=== PATIENT | male | born 1955 | race American Indian/Alaskan Native ===

== ENCOUNTER 2019-07-29 20:01 | Inpatient (IN) | payer MEDICARE, OTHER ==
[2019-07-29] MEDS ORDERED: ASPIRIN 81 MG TAB CHEW PO ONE (20:17)
[2019-07-29] MEDS ORDERED: ASPIRIN 81 MG TAB CHEW ONE (20:19)
--- NOTE | 2019-07-29 20:25 | Emergency Department Report ---
ED Chest Pain HPI - General Chief Complaint: Chest Pain Stated Complaint: CHEST PAIN Time Seen by Provider: 07/29/19 20:17 Source: EMS Mode of arrival: Stretcher Limitations: No Limitations - History of Present Illness Initial Comments: Patient is 63 years old male with history of coronary artery disease, status post stent 10 years ago at [facility]. Patient presented to the ER complaining of substernal chest pain that radiates to his neck. Patient describes his pain as heaviness. Patient stated that pain started 3 days ago, on and off worse in the morning. Patient denied any shortness of breath, fever or chills. EKG showed STEMI. STEMI protocol was initiated. I discussed the patient with Dr. Rangel. Patient moved to cardiac cath. MD Complaint: chest pain -: days(s) (3) Onset: during rest Pain Location: substernal Pain Radiation: none Severity: moderate Severity scale (0 -10): 5 Quality: heaviness Worsens With: nothing - Related Data Allergies Allergy/AdvReac Type Severity Reaction Status Date / Time No Known Allergies Allergy Unverified 07/29/19 20:14 Heart Score - HEART Score History: Highly suspicious EKG: Significant ST-depression Age: 45-65 Risk factors: > 3 risk factors or hx of atherosclerotic disease Troponin: < normal limit HEART Score: 7 - Critical Actions Critical Actions: >7 pts:50-65% risk of adverse cardiac event. Early invasive measures ED Review of Systems ROS: Stated complaint: CHEST PAIN Other details as noted in HPI Comment: All other systems reviewed and negative Constitutional: denies: chills, fever Respiratory: denies: cough Cardiovascular: chest pain. denies: palpitations, dyspnea on exertion, orthopnea Gastrointestinal: denies: abdominal pain, nausea, vomiting, diarrhea, constipation, hematemesis, melena, hematochezia Musculoskeletal: denies: back pain Neurological: denies: headache, weakness, numbness, paresthesias, confusion, abnormal gait ED Past Medical Hx - Past Medical History Hx Heart Attack/AMI: Yes Hx Diabetes: Yes Additional medical history: Cateracts - Surgical History Additional Surgical History: Cataracts urgery 07/13 - Social History Smoking Status: Unknown if ever smoked ED Physical Exam - General Limitations: No Limitations General appearance: alert, in no apparent distress - Head Head exam: Present: atraumatic, normocephalic, normal inspection - Eye Eye exam: Present: normal appearance - ENT ENT exam: Present: normal exam, normal orophraynx, mucous membranes moist - Neck Neck exam: Present: normal inspection, full ROM. Absent: tenderness, meningismus, lymphadenopathy, thyromegaly - Respiratory Respiratory exam: Present: normal lung sounds bilaterally - Cardiovascular Cardiovascular Exam: Present: bradycardia - GI/Abdominal GI/Abdominal exam: Present: soft, normal bowel sounds. Absent: distended, tenderness, guarding, rebound, rigid, organomegaly, mass, bruit, pulsatile mass, hernia - Extremities Exam Extremities exam: Present: normal inspection, full ROM, normal capillary refill. Absent: tenderness, pedal edema, joint swelling, calf tenderness - Back Exam Back exam: Present: normal inspection, full ROM. Absent: CVA tenderness (R), CVA tenderness (L) - Neurological Exam Neurological exam: Present: alert, oriented X3, CN II-XII intact, normal gait, reflexes normal - Psychiatric Psychiatric exam: Present: normal mood - Skin Skin exam: Present: warm, intact, normal color ED Course Vital Signs 07/29/19 07/29/19 07/29/19 20:00 20:08 20:16 Temperature 98.3 F Pulse Rate 82 57 L 61 Respiratory 13 12 10 L Rate Blood Pressure 149/88 149/88 Blood Pressure [Left] O2 Sat by Pulse 97 100 Oximetry 07/29/19 07/29/19 07/29/19 20:17 20:30 20:46 Temperature Pulse Rate 54 L 59 L 73 Respiratory 11 L 15 Rate Blood Pressure 132/72 132/85 Blood Pressure [Left] O2 Sat by Pulse 100 99 Oximetry 07/29/19 07/29/19 07/29/19 20:57 21:01 22:39 Temperature Pulse Rate 54 L 47 L Respiratory 12 16 Rate Blood Pressure 127/73 Blood Pressure 147/104 [Left] O2 Sat by Pulse 99 99 100 Oximetry ED Medical Decision Making - Lab Data Result diagrams: 07/29/19 20:26 07/29/19 20:26 - EKG Data -: EKG Interpreted by [place] EKG shows normal: sinus rhythm Rate: bradycardia - EKG Data Interpretation: acute NV - Medical Decision Making Patient is 63 years old male with history of coronary artery disease, status post stent 10 years ago at [facility]. Patient presented to the ER complaining of substernal chest pain that radiates to his neck. Patient describes his pain as heaviness. Patient stated that pain started 3 days ago, on and off worse in the morning. Patient denied any shortness of breath, fever or chills. EKG showed STEMI. STEMI protocol was initiated. Patient received aspirin, hep corie and Plavix. I discussed the patient with Dr. Rangel. Patient moved to cardiac cath. Critical Care Time: Yes Critical care time in (mins) excluding proc time.: 30 Critical care attestation.: If time is entered above; I have spent that time in minutes in the direct care of this critically ill patient, excluding procedure time. ED Disposition Clinical Impression: STEMI (ST elevation myocardial infarction) Disposition: [id number] OP ADMIT IP TO THIS HOSP Is pt being admited?: Yes Condition: Stable
[2019-07-29] MEDS ORDERED: CLOPIDOGREL 300 MG TAB PO ONE (20:30)
[2019-07-29] MEDS ORDERED: HEPARIN 10,000 UNITS/10 ML VIAL IV ONE (20:31)
[2019-07-29] MEDS: HEPARIN/ 0.45% NACL DRIP 25,000 UNIT/500 ML BAG IV SCH ×2 (20:38→21:27)
--- NOTE | 2019-07-29 20:42 | XRay Report ---
CHEST 1 VIEW 07/29/2019 8:18 PM INDICATION / CLINICAL INFORMATION: Chest Pain. COMPARISON: None available. FINDINGS: SUPPORT DEVICES: None. HEART / MEDIASTINUM: No significant abnormality. LUNGS / PLEURA: No significant pulmonary or pleural abnormality. No pneumothorax. ADDITIONAL FINDINGS: No significant additional findings. IMPRESSION: 1. No acute findings. Signer Name: Amado Rothman MD Signed: 07/29/2019 8:37 PM Workstation Name: [id number]
[2019-07-29 20:44] LABS: Basophils # (Auto) 0.1 K/mm3 (0.0-0.1); Basophils % (Auto) 0.4 % (0.0-1.8); Eosinophils # (Auto) 0.1 K/mm3 (0.0-0.4); Hematocrit 44.9 % (35.5-45.6); Hemoglobin 15.3 gm/dl (11.8-15.2); Lymphocytes # (Auto) 3.5 K/mm3 (1.2-5.4); Lymphocytes % (Auto) 24.2 % (13.4-35.0); Mean Corpuscular HGB Conc 34 % (32-34); Mean Corpuscular Volume 89 fl (84-94); Monocytes # (Auto) 0.9 K/mm3 (0.0-0.8); Monocytes % (Auto) 6.3 % (0.0-7.3); Platelet Count 173 K/mm3 (140-440); Red Blood Count 5.08 M/mm3 (3.65-5.03); Red Cell Distribution Width 12.9 % (13.2-15.2)
[2019-07-29 20:57] LABS: INR 1.01 (0.87-1.13)
[2019-07-29 21:05] LABS: Partial Thromboplastin Time 30.1 Sec. (24.2-36.6)
[2019-07-29 21:07] LABS: Bilirubin,Urine NEG (Negative); Blood,Urine SM (Negative); Color,Urine Yellow (Yellow); Urobilinogen,Urine < 2.0 mg/dL (<2.0)
[2019-07-29 21:07] LABS: BUN/Creatinine Ratio 20; Blood Urea Nitrogen 20 mg/dL (9-20); Calcium 9.2 mg/dL (8.4-10.2); Hemolysis Index 14
[2019-07-29] MEDS ORDERED: HEPARIN 10,000 UNITS/10 ML VIAL ONE (21:11)
[2019-07-29] MEDS ORDERED: LIDOCAINE (2%) 20 MG/1 ML VIAL 20 ML MDV INFILTRATI ONE (21:11)
[2019-07-29] MEDS ORDERED: fentaNYL 100 MCG/2 ML INJ ONE (21:11)
[2019-07-29] MEDS ORDERED: MIDAZOLAM 2 MG/2 ML INJ ONE (21:11)
[2019-07-29] MEDS ORDERED: VERAPAMIL 5 MG/2 ML INJ ONE (21:11)
[2019-07-29] MEDS ORDERED: HEPARIN/NS 5000 UNIT/500ML 1,000 ML IR ONE (21:11)
[2019-07-29] MEDS ORDERED: NITROGLYCERIN SYRINGE 3 ML ONE (21:12)
[2019-07-29 21:50] LABS: Amphetamine Screen,Urine PRESUMPTIVE NEGATIVE; Benzodiazepines Screen,Urine PRESUMPTIVE NEGATIVE; Cocaine Screen,Urine PRESUMPTIVE NEGATIVE; Methadone Screen,Urine PRESUMPTIVE NEGATIVE; Opiate Screen,Urine PRESUMPTIVE NEGATIVE
[2019-07-29 21:52] LABS: Chol/HDL Ratio 4.47 %; HDL Cholesterol 38 mg/dL (40-59); LDL Cholesterol,Direct 114 mg/dL (50-130)
[2019-07-29] MEDS ORDERED: MORPHINE 2 MG/1 ML INJ IV PRN (22:14)
[2019-07-29] MEDS ORDERED: ONDANSETRON 4 MG/2 ML INJ IV PRN (22:14)
[2019-07-29] MEDS ORDERED: ACETAMINOPHEN 325 MG TAB PO PRN (22:14)
--- NOTE | 2019-07-29 22:17 | History and Physical Report ---
History of Present Illness Date of examination: 07/29/19 History of present illness: 63-year-old man with a history of coronary artery disease comes emergency room with complaints of chest pain that started 5 days ago. He stated that the pain is in the epigastric area which she describes as a dull pain, has been interm ittent usually for 10 minutes but today was constant, intensity 7/10, leading to the neck, cannot identify exacerbating factor. Admits to diaphoresis, no nausea vomiting shortness of breath or palpitation. In the emergency room code STEMI was activated, he was taken emergently to the color laboratory technician, a stent was placed in the RCA and he also has a temporary pacemaker Review Of Systems: Constitutional: no weight loss, fever, chills Ears, eyes, nose, mouth and throat: no nasal congestion, no nasal discharge, no sinus pressure, blurry vision, diplopia Neck: No neck pain or rigidity. Cardiovascular: No palpitations Respiratory: No shortness of breath, cough Gastrointestinal: No hematochezia, abdominal pain Genitourinary : no dysuria, frequency , hematuria Musculoskeletal: no muscle ache , joint pain Integumentary: no rash, no pruritis Neurological: no parathesias, focal weakness Endocrine: no cold or heat intolerance, no polyuria or polydipsia Hematologic/Lymphatic: no easy bruising, no easy bleeding, no gland swelling Allergic/Immunologic: no urticaria, no angioedema. PAST MEDICAL HISTORY:coronary artery disease PAST SURGICAL HISTORY:None FAMILY HISTORY:hypertension, diabetes SOCIAL HISTORY: Smoke 1/2 a pack a day, marijuana, alcohol Medications and Allergies Allergies Allergy/AdvReac Type Severity Reaction Status Date / Time No Known Allergies Allergy Unverified 07/29/19 20:14 Active Meds: Active Medications Acetaminophen (Tylenol) 650 mg PO Q4H PRN PRN Reason: Pain MILD(1-3)/Fever >100.5/HODGES Aspirin (Ecotrin) 325 mg PO QDAY CHRISTIN Atorvastatin Calcium (Lipitor) 80 mg PO QHS CHRISTIN Heparin Sodium/Sodium Chloride (Heparin/ 0.45% Nacl-25,000 Unit/500 Ml) 25,000 unit in 500 mls @ 20 mls/hr IV TITRATE CHRISTIN; Protocol Last Admin: 07/29/19 21:27 Dose: 15 units/kg/hr, 26.807 mls/hr Documented by: Morphine Sulfate (Morphine) 2 mg IV Q4H PRN PRN Reason: Pain, Moderate (4-6) Ondansetron HCl (Zofran) 4 mg IV Q8H PRN PRN Reason: Nausea And Vomiting Sodium Chloride (Sodium Chloride Flush Syringe 10 Ml) 10 ml IV BID CHRISTIN Sodium Chloride (Sodium Chloride Flush Syringe 10 Ml) 10 ml IV PRN PRN PRN Reason: LINE FLUSH Exam - Physical Exam Narrative exam: General Apperance: The patient sitting in bed no acute distress HEENT: Normocephalic, atraumatic. Pupils equally round and reactive to light, extraocular movement intact, and no sclericterus or JVD or thyromegaly or nodule. Neck supple, no carotid bruit, mucous membranes moist, no exudate or erythema Heart: S1-S2, regular is rhythm Lungs: Clear to auscultation bilaterally, breathing comfortable Abdomen: Positive bowel sounds, soft, nontender, nondistended, no organomegaly Extremities: No edema cyanosis clubbing Skin: no rash, nodule, warm and dry Neuro:CN 2 -12 intact, motor/sensory intact, speech is fluent - Constitutional Vitals: Temp Pulse Resp BP Pulse Ox 98.3 F 47 L 16 127/73 99 07/29/19 20:08 07/29/19 21:01 07/29/19 21:01 07/29/19 21:01 07/29/19 21:01 Results - Labs CBC & Chem 7: 07/29/19 20:26 07/29/19 20:26 Labs: Abnormal lab results 07/29/19 07/29/19 07/29/19 Range/Units 20:26 20:26 20:45 WBC 14.4 H (4.5-11.0) K/mm3 RBC 5.08 H (3.65-5.03) M/mm3 Hgb 15.3 H (11.8-15.2) gm/dl RDW 12.9 L (13.2-15.2) % Hickman # 0.9 H (0.0-0.8) K/mm3 Seg Neutrophils # 9.8 H (1.8-7.7) K/mm3 Sodium 135 L (137-145) mmol/L Chloride 97.4 L (98-107) mmol/L Carbon Dioxide 21 L (22-30) mmol/L Glucose 205 H (75-100) mg/dL Troponin T 0.063 H (0.00-0.029) ng/mL Triglycerides 185 H (2-149) mg/dL HDL Cholesterol 38 L (40-59) mg/dL Urine WBC (Auto) 169.0 H (0.0-6.0) /HPF - Imaging and Cardiology EKG: image reviewed Chest x-ray: report reviewed Assessment and Plan Assessment STMI Leukocytosis most likely stressed induced Plan Admit to medicine Patient was started on aspirin, statin by cardiology Consult critical care IV morphine, DVT prophylaxis
[2019-07-29 22:22] LABS: Cannabinoid Screen,Urine PRESUMPTIVE POSITIVE
--- NOTE | 2019-07-29 23:19 | Cardiac Catherization Report ---
CARDIAC CATHETERIZATION INDICATION: The patient is a pleasant 63-year-old -[place] gentleman who presents with 3 days of chest pain and inferior ST elevation. STEMI protocol was initiated. Risks, benefits, alternatives discussed prior to obtaining informed consent. PROCEDURE IN DETAIL: The patient was brought to the clinical laboratory manager in urgent fashion, prepped and draped in sterile fashion, 8 mL of 2% lidocaine used to anesthetize the right groin. A standard 7-Romansh sheath placed in the right femoral vein and 6-Romansh in the right femoral artery. Both via modified Seldinger technique. At this point, due to significant bradycardia with heart rates in the 30s, I placed a balloon tipped temporary venous pacemaker via the right femoral vein, a backup rate set at 50, pacemaker operating normally. Next, we turned our attention to left heart catheterization. Unable to find the left system and the left coronary cusp via JL4 catheter, we used a JR4 guide to cross the aortic valve. Left ventriculography performed in 30 RIVAS and 30 MALIAN projections via hand injections, catheter flushed. Manual pullback performed with continuous pressure monitoring. Catheter used to engage the right coronary. Incidentally, it was noted that the left main and the right coronary arise from the right coronary cusp. I believe they are essentially adjacent or perpendicular to each other the takeoffs. FINDINGS: Aortic pressure is 130/70, LV pressure is 130, LVP of 20 mmHg. Left ventriculography reveals inferoapical dyskinesis, estimated ejection fraction of 40-45%. No evidence of aortic stenosis, high normal LVEDP. The patient remained in sinus zander to sinus rhythm with PVCs throughout the procedure. ANATOMY: The left main without significant disease, long left main bifurcates into left anterior descending and left circumflex. LAD is a moderate sized vessel, courses AV groove, gives off no significant disease in the LAD or left circumflex. There is a small remnant, left circumflex also coming off of the right coronary cusp, small vessel, no significant disease. Right coronary is a large vessel, courses AV groove, distally bifurcates in the posterior and posterolateral branches. Stent in the mid right coronary is widely patent. Acute plaque rupture 99%, tandem 99% stenosis just distal to the stent, ROMAN 1-2 flow. At this point, we turned our attention to PCI. Heparin given. Abnormal ACT is confirmed. A [place] wire was used to cross the lesion without difficulty, predilated the lesions with 2.5 x 12 balloon. I placed a 2.75 x 34 [place] drug-eluting stent, 12 DOT for 30 seconds and postdilated at 13 DOT for 15 seconds, postdilated the overlap with the proximal stent at 14 DOT for 15 seconds. Excellent final angiographic result. Intravascular ultrasound was performed, multiple passes were made, which revealed well-opposed and well expanded stent. There is a 30-40% stenosis in the mid right coronary nonobstructive, no complications, no dissection. The patient is feeling much better. Rhythm is now normal. Clinically stable. We will keep the pacemaker in overnight, if he does not need it in the morning we will discontinue the right femoral arterial sheath once ACT is less than 170. He has already been loaded with Plavix and aspirin. He is clinically much improved. I directly supervised the administration of moderate sedation from 9:20 p.m. to 10:05 p.m. I also had a long discussion with the patient about smoking cessation and smoking techniques over 10 minutes spent on this. He smokes marijuana and tobacco. CONCLUSIONS: 1. Acute atherothrombotic subtotal occlusion .of the distal right coronary in the milieu of 3 days of crescendo chest pain, inferior ST elevation complicated by severe bradycardia. A successful IVUS-guided PCI of mid right coronary with placement of drug-eluting stent (Sushil 2.75 x 34) with excellent final angiographic and ultrasonographic results. 2. Successful placement of temporary venous pacemaker via the right femoral vein. 3. Incidentally, the left main arises from the right coronary cusp. No significant disease in the left system. 4. Left ventriculography reveals inferoapical dyskinesis, estimated ejection fraction 40-45% with high normal LVEDP. 5. No evidence of aortic stenosis. At this point, patient is clinically stable. Aspirin, statin therapy. Pull femoral arterial sheath once ACT less than 170. Consider pulling femoral venous sheath once in a.m. if patient no longer requires pacing. Aspirin, Plavix, statin therapy. Bed rest overnight. We will check an echocardiogram. I discussed the results of procedure at length with the patient and family. All questions and concerns were addressed. He is clinically stable and doing much better, will be admitted by the hospitalist to the ICU. We will follow along closely. JOB# [id number] SBM/NTS
--- NOTE | 2019-07-30 00:54 | Consultation ---
CARDIOLOGY CONSULTATOIN PRIMARY CARE PHYSICIAN: Dr. Tejeda. REASON FOR CONSULTATION: Advice and opinion regarding ST elevation and chest pain. HISTORY OF PRESENT ILLNESS: The patient is a very pleasant 63-year-old -[place] gentleman with a history of hypertension, diabetes, coronary artery disease, status post PCI, tobacco abuse, who presents here for ongoing chest pain, worsening over 3 days. He states that he had some chest pain, diaphoresis. EKG shows bradycardia, inferior ST elevation, reciprocal lateral changes initially had 10/10 chest pain. STEMI protocol was initiated. Positive diaphoresis. No syncope or presyncope. No palpitations, rashes, abdominal pain, bleeding diathesis. No fevers, chills, nausea or vomiting. No headache, blurred vision or stroke symptoms. PAST MEDICAL HISTORY: As aforementioned including hypertension, diabetes, tobacco abuse, marijuana use. He also has a family history of premature heart disease. 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 He is . REVIEW OF SYSTEMS: As per HPI. ALLERGIES: No known drug, food, or environmental allergies. LABORATORY DATA: Labs are pending. PHYSICAL EXAMINATION: VITAL SIGNS: Blood pressure was 140/80, is afebrile. Tele reveals sinus rhythm with unifocal PVCs. GENERAL: This is a middle-aged -[place] male in no apparent distress, oriented x 3. HEENT: Sclerae icteric. NECK: Supple. No JVD. CHEST: Clear to auscultation bilaterally. Good air movement. CARDIOVASCULAR: Regular rhythm, S1, S2. ABDOMEN: Soft, nontender, nondistended. Normoactive bowel sounds in all 4 quadrants. No mass or bruits. EXTREMITIES: No cyanosis, clubbing or edema. Good peripheral pulses. SKIN: Intact. No rashes. DATA: EKG is aforementioned. ASSESSMENT AND PLAN: In summary, the patient is a pleasant 63-year-old -[place] gentleman. 1. Acute inferior ST elevation myocardial infarction with 3 days of worsening chest pain late presentation. STEMI protocol initiated. Aspirin, Plavix, heparin given. Urgent cardiac catheterization. Further plans continued on cath results. Over 45 minutes were spent in the evaluation of the patient upon ER notification. Further plans will be continued on cath results. JOB# [id number] SBM/NTS
--- NOTE | 2019-07-30 04:54 | XRay Report ---
CHEST 1 VIEW 07/30/2019 3:17 AM INDICATION / CLINICAL INFORMATION: post pci. COMPARISON: Chest x-ray 07/29/2019 FINDINGS: SUPPORT DEVICES: None. HEART / MEDIASTINUM: No significant abnormality. LUNGS / PLEURA: No significant pulmonary or pleural abnormality. No pneumothorax. ADDITIONAL FINDINGS: No significant additional findings. IMPRESSION: 1. No acute findings. Signer Name: Amado Rothman MD Signed: 07/30/2019 4:50 AM Workstation Name: [id number]
[2019-07-30 05:36] LABS: Basophils % (Auto) 0.3 % (0.0-1.8); Eosinophils % (Auto) 0.4 % (0.0-4.3); Lymphocytes # (Auto) 2.6 K/mm3 (1.2-5.4); Lymphocytes % (Auto) 23.9 % (13.4-35.0); Mean Corpuscular HGB Conc 34 % (32-34); Mean Corpuscular Volume 89 fl (84-94); Monocytes # (Auto) 0.9 K/mm3 (0.0-0.8); Monocytes % (Auto) 8.3 % (0.0-7.3); Platelet Count 151 K/mm3 (140-440); Red Blood Count 4.97 M/mm3 (3.65-5.03); Red Cell Distribution Width 12.6 % (13.2-15.2)
[2019-07-30 05:59] LABS: Creatine Kinase MB 197.2 ng/mL (0.0-4.0)
[2019-07-30 06:01] LABS: BUN/Creatinine Ratio 20; Blood Urea Nitrogen 16 mg/dL (9-20); Calcium 8.5 mg/dL (8.4-10.2); Hemolysis Index 1
--- NOTE | 2019-07-30 08:23 | Event Note ---
Date: 07/30/19 no cp or sob nad vss sinus rhythm 55-65 chest clear cor rrr abd soft ext w/o edema imp: s/p stemi/pci/bradycardia stable cardiac status temp pacer removed continue current mgt
[2019-07-30] MEDS: ASPIRIN EC 325 MG TAB PO SCH (10:49)
[2019-07-30] MEDS: CLOPIDOGREL 75 MG TAB PO SCH (10:49)
--- NOTE | 2019-07-30 12:26 | Progress Note ---
Assessment and Plan - Patient Problems (1) STEMI (ST elevation myocardial infarction) Current Visit: Yes Status: Acute Qualifiers: Involved coronary artery: right coronary artery Qualified Code(s): I21.11 - ST elevation (STEMI) myocardial infarction involving right coronary artery Plan to address problem: S/p stent Cont Plavix and ASA On IV Heparin drip (2) UTI (urinary tract infection) Current Visit: Yes Status: Acute Qualifiers: Urinary tract infection type: acute cystitis Plan to address problem: Initiated on Rocephin pending cultures (3) BPH (benign prostatic hyperplasia) Current Visit: Yes Status: Chronic Qualifiers: Lower urinary tract symptom presence: symptoms present Plan to address problem: Cont Flomax (4) T2DM (type 2 diabetes mellitus) Current Visit: Yes Status: Chronic Qualifiers: Diabetes mellitus intermediate project manager insulin use: without intermediate project manager use Plan to address problem: Cont Metformin and coverage (5) Glaucoma Current Visit: Yes Status: Chronic Qualifiers: Glaucoma type: unspecified Plan to address problem: [place] Eye drops Latanoprost and Timolol (6) HLD (hyperlipidemia) Current Visit: Yes Status: Chronic Qualifiers: Hyperlipidemia type: mixed hyperlipidemia Qualified Code(s): E78.2 - Mixed hyperlipidemia Plan to address problem: Cont statins (7) DVT prophylaxis Current Visit: Yes Status: Acute Plan to address problem: Scd's and GI prophylaxis and Heparin drip Subjective Date of service: 07/30/19 Principal diagnosis: Acute [place] Interval history: 63-year-old man with a history of coronary artery disease comes emergency room with complaints of chest pain that started 5 days ago. He stated that the pain is in the epigastric area which he describes as a dull pain, has been intermittent usually for 10 minutes but today was constant, intensity 7/10, leading to the neck, cannot identify exacerbating factor. Admits to diaphoresis, no nausea vomiting shortness of breath or palpitation. In the emergency room code STEMI was activated, he was taken emergently to the [facility], a stent was placed in the RCA and he also has a temporary venous pacemaker. Interval history--Patient is chest pain free.Lying comfortably in bed.Family at bedside Objective - Constitutional Vitals: Vital Signs - 12hr 07/30/19 07/30/19 07/30/19 00:30 00:31 00:41 Temperature Pulse Rate 66 66 Pulse Rate [ From Monitor] Respiratory 16 20 Rate Blood Pressure 129/77 129/77 O2 Sat by Pulse 100 100 100 Oximetry 07/30/19 07/30/19 07/30/19 00:51 01:00 01:01 Temperature Pulse Rate 54 L 95 H Pulse Rate [ From Monitor] Respiratory 15 22 Rate Blood Pressure 125/77 125/77 O2 Sat by Pulse 100 100 100 Oximetry 07/30/19 07/30/19 07/30/19 01:11 01:21 01:31 Temperature Pulse Rate 68 59 L 61 Pulse Rate [ From Monitor] Respiratory 21 16 15 Rate Blood Pressure 125/77 128/85 128/85 O2 Sat by Pulse 100 100 100 Oximetry 07/30/19 07/30/19 07/30/19 01:41 01:51 02:00 Temperature Pulse Rate 62 100 H Pulse Rate [ From Monitor] Respiratory 16 16 Rate Blood Pressure 128/85 128/85 O2 Sat by Pulse 100 100 100 Oximetry 07/30/19 07/30/19 07/30/19 02:01 02:11 02:21 Temperature Pulse Rate 61 60 61 Pulse Rate [ From Monitor] Respiratory 20 23 19 Rate Blood Pressure 128/65 128/65 115/73 O2 Sat by Pulse 99 100 100 Oximetry 07/30/19 07/30/19 07/30/19 02:31 02:41 02:51 Temperature Pulse Rate 60 107 H 116 H Pulse Rate [ From Monitor] Respiratory 14 18 24 Rate Blood Pressure 115/73 117/73 116/69 O2 Sat by Pulse 100 99 99 Oximetry 07/30/19 07/30/19 07/30/19 03:01 03:11 03:21 Temperature Pulse Rate 60 56 L 80 Pulse Rate [ From Monitor] Respiratory 17 16 26 H Rate Blood Pressure 116/69 105/72 116/69 O2 Sat by Pulse 100 100 100 Oximetry 07/30/19 07/30/19 07/30/19 03:31 03:41 03:51 Temperature Pulse Rate 59 L 53 L 64 Pulse Rate [ From Monitor] Respiratory 19 23 18 Rate Blood Pressure 116/69 116/69 116/69 O2 Sat by Pulse 100 100 100 Oximetry 07/30/19 07/30/19 07/30/19 04:00 04:01 04:03 Temperature 98.2 F Pulse Rate 69 Pulse Rate [ 66 From Monitor] Respiratory 26 H Rate Blood Pressure 107/74 O2 Sat by Pulse 100 100 Oximetry 07/30/19 07/30/19 07/30/19 04:11 04:21 04:31 Temperature Pulse Rate 56 L 57 L 92 H Pulse Rate [ From Monitor] Respiratory 19 21 24 Rate Blood Pressure 107/74 107/74 107/74 O2 Sat by Pulse 100 100 100 Oximetry 07/30/19 07/30/19 07/30/19 04:41 04:51 05:01 Temperature Pulse Rate 101 H 60 55 L Pulse Rate [ From Monitor] Respiratory 21 17 21 Rate Blood Pressure 107/74 107/74 109/73 O2 Sat by Pulse 99 99 99 Oximetry 07/30/19 07/30/19 07/30/19 05:11 05:21 05:31 Temperature Pulse Rate 57 L 58 L 54 L Pulse Rate [ From Monitor] Respiratory 19 18 16 Rate Blood Pressure 109/73 109/73 109/73 O2 Sat by Pulse 99 100 100 Oximetry 07/30/19 07/30/19 07/30/19 05:41 05:51 06:01 Temperature Pulse Rate 54 L 58 L 53 L Pulse Rate [ From Monitor] Respiratory 15 19 16 Rate Blood Pressure 109/73 109/73 124/68 O2 Sat by Pulse 99 99 99 Oximetry 07/30/19 07/30/19 07/30/19 06:11 06:21 06:31 Temperature Pulse Rate 70 60 55 L Pulse Rate [ From Monitor] Respiratory 16 18 17 Rate Blood Pressure 124/68 124/68 124/68 O2 Sat by Pulse 100 100 100 Oximetry 07/30/19 07/30/19 07/30/19 06:41 06:51 07:00 Temperature Pulse Rate 56 L 66 Pulse Rate [ 74 From Monitor] Respiratory 18 19 Rate Blood Pressure 124/68 124/68 O2 Sat by Pulse 100 100 100 Oximetry 07/30/19 07/30/19 07/30/19 07:01 07:11 07:21 Temperature Pulse Rate 101 H 54 L 66 Pulse Rate [ From Monitor] Respiratory 17 19 16 Rate Blood Pressure 124/68 124/68 124/68 O2 Sat by Pulse 100 99 99 Oximetry 07/30/19 07/30/19 07/30/19 07:31 07:41 07:51 Temperature Pulse Rate 81 57 L 86 Pulse Rate [ From Monitor] Respiratory 14 12 13 Rate Blood Pressure 124/68 124/68 124/68 O2 Sat by Pulse 100 100 100 Oximetry 07/30/19 07/30/19 07/30/19 08:00 08:01 08:11 Temperature 98.5 F Pulse Rate 57 L 67 Pulse Rate [ From Monitor] Respiratory 17 15 Rate Blood Pressure 107/67 107/67 O2 Sat by Pulse 100 100 Oximetry 07/30/19 07/30/19 07/30/19 08:21 08:31 08:41 Temperature Pulse Rate 64 56 L 56 L Pulse Rate [ From Monitor] Respiratory 18 18 19 Rate Blood Pressure 107/67 107/67 107/67 O2 Sat by Pulse 100 100 99 Oximetry 07/30/19 07/30/19 07/30/19 08:51 09:01 09:11 Temperature Pulse Rate 80 60 54 L Pulse Rate [ From Monitor] Respiratory 17 19 15 Rate Blood Pressure 107/67 107/67 107/67 O2 Sat by Pulse 100 100 100 Oximetry 07/30/19 07/30/19 07/30/19 09:21 09:31 09:41 Temperature Pulse Rate 57 L 58 L 61 Pulse Rate [ From Monitor] Respiratory 17 17 16 Rate Blood Pressure 107/67 107/67 107/67 O2 Sat by Pulse 100 100 100 Oximetry 07/30/19 07/30/19 07/30/19 09:51 10:00 10:01 Temperature Pulse Rate 92 H 56 L 56 L Pulse Rate [ From Monitor] Respiratory 20 21 Rate Blood Pressure 107/67 121/69 O2 Sat by Pulse 99 98 98 Oximetry 07/30/19 07/30/19 07/30/19 10:11 10:21 10:30 Temperature Pulse Rate 61 58 L 59 L Pulse Rate [ From Monitor] Respiratory 21 18 15 Rate Blood Pressure 121/69 121/69 121/69 O2 Sat by Pulse 98 100 99 Oximetry 07/30/19 07/30/19 07/30/19 10:41 10:51 11:01 Temperature Pulse Rate 57 L 68 51 L Pulse Rate [ From Monitor] Respiratory 20 13 20 Rate Blood Pressure 121/69 121/69 110/74 O2 Sat by Pulse 100 100 100 Oximetry 07/30/19 07/30/19 07/30/19 11:11 11:21 11:31 Temperature Pulse Rate 54 L 59 L 52 L Pulse Rate [ From Monitor] Respiratory 16 15 15 Rate Blood Pressure 110/74 110/74 110/74 O2 Sat by Pulse 99 100 100 Oximetry General appearance: Present: no acute distress, well-nourished - EENT Eyes: PERRL, EOM intact ENT: hearing intact, clear oral mucosa Ears: bilateral: normal - Neck Neck: supple, normal ROM - Respiratory Respiratory effort: normal Respiratory: bilateral: CTA - Breasts Breasts: normal - Cardiovascular Heart rate: 78 Rhythm: regular Heart Sounds: Present: S1 & S2. Absent: gallop, rub Extremities: no ischemia, pulses intact, No edema, normal color, Full ROM - Gastrointestinal General gastrointestinal: Present: soft, non-tender, non-distended, normal bowel sounds Rectal Exam: deferred - Genitourinary Male genitourinary: normal - Integumentary Integumentary: clear, warm, dry - Musculoskeletal Musculoskeletal: 1, strength equal bilaterally - Neurologic Neurologic: moves all extremities - Psychiatric Psychiatric: memory intact, appropriate mood/affect, intact judgment & insight - Labs CBC & Chem 7: 07/30/19 04:55 07/30/19 04:55 Labs: Abnormal lab results 07/29/19 07/29/19 07/29/19 Range/Units 20:26 20:26 20:45 WBC 14.4 H (4.5-11.0) K/mm3 RBC 5.08 H (3.65-5.03) M/mm3 Hgb 15.3 H (11.8-15.2) gm/dl RDW 12.9 L (13.2-15.2) % [place] % (Auto) (0.0-7.3) % [place] # 0.9 H (0.0-0.8) K/mm3 Seg Neutrophils # 9.8 H (1.8-7.7) K/mm3 Activated Clotting Time (74-137) Sodium 135 L (137-145) mmol/L Chloride 97.4 L (98-107) mmol/L Carbon Dioxide 21 L (22-30) mmol/L Glucose 205 H (75-100) mg/dL Total Creatine Kinase (55-170) units/L CK-MB (CK-2) (0.0-4.0) ng/mL CK-MB (CK-2) Rel Index (0-4) Troponin T 0.063 H (0.00-0.029) ng/mL Triglycerides 185 H (2-149) mg/dL HDL Cholesterol 38 L (40-59) mg/dL Urine WBC (Auto) 169.0 H (0.0-6.0) /HPF 07/29/19 07/30/19 07/30/19 Range/Units 23:20 00:43 01:03 WBC (4.5-11.0) K/mm3 RBC (3.65-5.03) M/mm3 Hgb (11.8-15.2) gm/dl RDW (13.2-15.2) % [place] % (Auto) (0.0-7.3) % [place] # (0.0-0.8) K/mm3 Seg Neutrophils # (1.8-7.7) K/mm3 Activated Clotting Time > 1000 H > 1000 H (74-137) Sodium (137-145) mmol/L Chloride (98-107) mmol/L Carbon Dioxide (22-30) mmol/L Glucose (75-100) mg/dL Total Creatine Kinase (55-170) units/L CK-MB (CK-2) (0.0-4.0) ng/mL CK-MB (CK-2) Rel Index (0-4) Troponin T 1.970 H* D (0.00-0.029) ng/mL Triglycerides (2-149) mg/dL HDL Cholesterol (40-59) mg/dL Urine WBC (Auto) (0.0-6.0) /HPF 07/30/19 07/30/19 Range/Units 04:55 04:55 WBC (4.5-11.0) K/mm3 RBC (3.65-5.03) M/mm3 Hgb (11.8-15.2) gm/dl RDW 12.6 L (13.2-15.2) % [place] % (Auto) 8.3 H (0.0-7.3) % [place] # 0.9 H (0.0-0.8) K/mm3 Seg Neutrophils # (1.8-7.7) K/mm3 Activated Clotting Time (74-137) Sodium 136 L (137-145) mmol/L Chloride (98-107) mmol/L Carbon Dioxide 20 L (22-30) mmol/L Glucose 160 H (75-100) mg/dL Total Creatine Kinase 2790 H (55-170) units/L CK-MB (CK-2) 197.2 H (0.0-4.0) ng/mL CK-MB (CK-2) Rel Index 7.0 H (0-4) Troponin T 7.240 H* D (0.00-0.029) ng/mL Triglycerides (2-149) mg/dL HDL Cholesterol (40-59) mg/dL Urine WBC (Auto) (0.0-6.0) /HPF - Imaging and cardiology EKG: report reviewed
--- NOTE | 2019-07-30 13:35 | Consultation ---
History of Present Illness Consult date: 07/30/19 Requesting physician: EJ ANDERSON Reason for consult: other (STEMI) History of present illness: PULMONARY/CCM CONSULT NOTE (Full dictation # [id number]) Please see dictated notes for full details Medications and Allergies Allergies Allergy/AdvReac Type Severity Reaction Status Date / Time No Known Allergies Allergy Unverified 07/29/19 20:14 Home Medications Medication Instructions Recorded Confirmed Last Taken Type AtorvaSTATin [Lipitor] 20 mg PO QHS 07/30/19 07/30/19 07/28/19 21:00 History Baclofen 5 mg PO TID PRN MDD 15 mg 07/30/19 07/30/19 2 Days Ago History ~07/28/19 1 tab Latanoprost 0.005% [Xalatan 0.005%] 1 drop OP QPM 07/30/19 07/30/19 2 Days Ago History ~07/28/19 Metformin HCl [metFORMIN] 1,000 mg PO BID MDD diabetes 07/30/19 07/30/19 07/29/19 09:00 History Moxifloxacin 0.5% [Vigamox] 1 drops OP QAM 07/30/19 07/30/19 1 Day Ago History ~07/29/19 Tamsulosin [Flomax] 0.4 mg PO QDAY 07/30/19 07/30/19 07/29/19 09:00 History Timolol 0.5% [Timoptic] 1 drops OP BID 07/30/19 07/30/19 07/29/19 09:00 History 1 drop both eyes prednisoLONE ACETATE 1% [Pred 1 drops OP QDAY 07/30/19 07/30/19 07/29/19 09:00 History Forte 1%] Active Meds: Active Medications Acetaminophen (Tylenol) 650 mg PO Q4H PRN PRN Reason: Pain MILD(1-3)/Fever >100.5/HODGES Aspirin (Ecotrin) 325 mg PO QDAY [facility] Last Admin: 07/30/19 10:49 Dose: 325 mg Documented by: Atorvastatin Calcium (Lipitor) 80 mg PO QHS CHRISTIN Clopidogrel Bisulfate (Plavix) 75 mg PO QDAY [facility] Last Admin: 07/30/19 10:49 Dose: 75 mg Documented by: Heparin Sodium/Sodium Chloride (Heparin/ 0.45% Nacl-25,000 Unit/500 Ml) 25,000 unit in 500 mls @ 20 mls/hr IV TITRATE CHRISTIN; Protocol Last Admin: 07/29/19 21:27 Dose: 15 units/kg/hr, 26.807 mls/hr Documented by: Ceftriaxone Sodium (Rocephin/Ns 2 Gm/100 Ml) 2 gm in 100 mls @ 200 mls/hr IV Q24HR CHRISTIN; Protocol Insulin Human Lispro (Humalog) 0 unit SUB-Q ACHS CHRISTIN; Protocol Morphine Sulfate (Morphine) 2 mg IV Q4H PRN PRN Reason: Pain, Moderate (4-6) Ondansetron HCl (Zofran) 4 mg IV Q8H PRN PRN Reason: Nausea And Vomiting Sodium Chloride (Sodium Chloride Flush Syringe 10 Ml) 10 ml IV BID [facility] Last Admin: 07/30/19 10:52 Dose: 10 ml Documented by: Sodium Chloride (Sodium Chloride Flush Syringe 10 Ml) 10 ml IV PRN PRN PRN Reason: LINE FLUSH Physical Examination Vital signs: Vital Signs Pulse Resp 82 13 07/29/19 20:00 07/29/19 20:00 Results - Laboratory Findings CBC and BMP: 07/30/19 04:55 07/30/19 04:55 PT/INR, D-dimer PT 13.0 Sec. (12.2-14.9) 07/29/19 20:33 INR 1.01 (0.87-1.13) 07/29/19 20:33 Abnormal lab findings: Abnormal Labs 07/29/19 07/29/19 07/29/19 20:26 20:26 20:45 WBC 14.4 H RBC 5.08 H Hgb 15.3 H RDW 12.9 L [place] % (Auto) [place] # 0.9 H Seg Neutrophils # 9.8 H Activated Clotting Time Sodium 135 L Chloride 97.4 L Carbon Dioxide 21 L Glucose 205 H Total Creatine Kinase CK-MB (CK-2) CK-MB (CK-2) Rel Index Troponin T 0.063 H Triglycerides 185 H HDL Cholesterol 38 L Urine WBC (Auto) 169.0 H 07/29/19 07/30/19 07/30/19 23:20 00:43 01:03 WBC RBC Hgb RDW [place] % (Auto) [place] # Seg Neutrophils # Activated Clotting Time > 1000 H > 1000 H Sodium Chloride Carbon Dioxide Glucose Total Creatine Kinase CK-MB (CK-2) CK-MB (CK-2) Rel Index Troponin T 1.970 H* D Triglycerides HDL Cholesterol Urine WBC (Auto) 07/30/19 07/30/19 04:55 04:55 WBC RBC Hgb RDW 12.6 L [place] % (Auto) 8.3 H [place] # 0.9 H Seg Neutrophils # Activated Clotting Time Sodium 136 L Chloride Carbon Dioxide 20 L Glucose 160 H Total Creatine Kinase 2790 H CK-MB (CK-2) 197.2 H CK-MB (CK-2) Rel Index 7.0 H Troponin T 7.240 H* D Triglycerides HDL Cholesterol Urine WBC (Auto)
[2019-07-30] MEDS ORDERED: HEPARIN/ 0.45% NACL - 25,000 UNITS/500 ML DRIP ONE (14:03)
[2019-07-30] MEDS ORDERED: HEPARIN 10,000 UNITS/10 ML VIAL ONE (14:03)
[2019-07-30] MEDS ORDERED: SODIUM CHLORIDE 0.9% 1000 ML IV SOLN ONE (14:03)
[2019-07-30] MEDS: cefTRIAXone/NS 2 GM/100 ML 2 GM/100 ML BAG IV SCH (15:29)
[2019-07-30] MEDS: FAMOTIDINE 20 MG TAB PO SCH ×2 (15:44→21:58)
[2019-07-30] MEDS: INSULIN LISPRO 100 UNIT/ML SUB-Q SCH ×2 (16:47→22:25)
--- NOTE | 2019-07-31 05:05 | Consultation ---
PULMONARY CRITICAL CARE CONSULTATION CONSULTING PHYSICIAN: Dr. Li. REASON FOR CONSULTATION: ST elevation IL. CHIEF COMPLAINT AND HISTORY OF PRESENT ILLNESS: As follows, the patient is a 63-year-old black male with past medical history significant for diagnosis of coronary artery disease, came into the Emergency Room, complaining of chest pain that he states he first noticed about 5 days ago, he woke up in the morning with a slight pain, did not think too much about it. It continued to bother him daily. However, yesterday about 5:00 p.m. or so, he went into the kitchen to try and get some food and was hit with a really bad pain, broke out into sweat, could not really figure out what to do. He had dyspnea on exertion, shortness of breath. He denied any vomiting. In the Emergency Room, he was brought in and found to have an ST elevation. EKG was taken emergently to the [facility], received a stent to the RCA as well as a temporary pacemaker placement. He was brought into the Intensive Care Unit thereafter where I stopped by to see him. When I stopped by to see him, he was resting peacefully in bed, feeling better. He stated that he has received a stent in the past, but did not know, he should be on any medications, he admits to about a 20+ pack year tobacco smoking history. This really is as much of the history of presentation as I have. PAST MEDICAL HISTORY: Coronary artery disease. PAST SURGICAL HISTORY: Denies. MEDICATIONS: He was on at the time I stopped by to see him, according to the medication administration record, included the following: Tylenol 650 mg p.o. q. 4 hours p.r.n. mild pain or fevers, aspirin 325 mg p.o. daily, Lipitor 80 mg p.o. at bedtime, Rocephin 2 g IV daily, Plavix 75 mg p.o. daily, IV heparin drip was going per ACS protocol, morphine sulfate 2 mg IV q. 4 hours p.r.n. moderate pain, Zofran 4 mg IV q. 8 hours p.r.n. nausea and vomiting. ALLERGIES: No known drug allergies. DIET: Well-built gentleman, denies acute weight loss or gain in the preceding few weeks to months. FAMILY AND SOCIAL HISTORY: Lives in the community, 20+ pack year tobacco smoking history, smokes marijuana. Denies IV illicit drug use or abuse otherwise, denies alcohol use or abuse. There is a family history of hypertension and diabetes. REVIEW OF SYSTEMS: No loss of consciousness. He had a near syncope. No new onset focal weakness. No gross hematochezia or melena. No gross hematuria or dysuria. No hematemesis. No hemoptysis. No new onset seizures. He denies any history of easy bruising. He denies heat or cold intolerance. He denies polydipsia or polyuria. Denied any new rash on his body. Denies any periods of unexplained sadness and/or elation as may be consistent with psychiatric type disorders. Complete 13-system review of systems was obtained. Pertinent positives and/or negatives as in body of history above, otherwise, they are noncontributory. PHYSICAL EXAMINATION: VITAL SIGNS: At presentation, he was afebrile, temperature 98.3 degrees Fahrenheit, pulse of 82, respiratory rate of 13, blood pressure was 149/98, O2 sats were 97%, inspired oxygen concentration was not recorded at the time. When I stopped by to see him, O2 sats were 99% that was on room air. GENERAL: He is an elderly looking male, normocephalic, atraumatic, talking to me in full sentences without significant respiratory distress. HEAD, EYES, EARS, NOSE, AND THROAT: Anicteric, no conjunctival erythema. Oropharynx is moist. Mallampati #2 oropharynx. No gross jugular venous distention, no thyromegaly. NECK: Grossly, there were no palpable lymph nodes in the supraclavicular or submandibular lymph node chains. LUNGS: Auscultation of both lung celis were unremarkable. Lungs were clear bilaterally with good bilateral air movement. HEART: Heart sounds 1 and 2 were heard. They were regular in rate and rhythm, at the time of my evaluation without overt rubs or murmurs. ABDOMEN: Soft, flat. Bowel sounds are positive, nontender, no palpable hepatosplenomegaly. EXTREMITIES: Without overt digital clubbing, no cyanosis, no pedal edema. Pedal pulses were 2+ bilaterally. NEUROLOGIC: Pupils were equal, round, about 3 mm, reactive to light. Extraocular muscle movements were intact. He moved all 4 extremities spontaneously. No fasciculations, no spasticity. SKIN: Normal turgor without overt cellulitis or rash. PSYCHIATRIC: Mood was normal. Affect was appropriate. LABORATORY DATA: From my review are as follows: Admission white cell count 14,400, hemoglobin 15.3, hematocrit 44.9, platelet count 173. INR was 1.01. Serum sodium was 135, potassium was 4.6, chloride was 97, bicarbonate was 21, BUN was 20, creatinine 1.0, and glucose 205. Troponin was 1.97. LDL cholesterol 114, HDL 38. Urinalysis showed large amount of leukocyte esterase as well as 169 white cells per high power field. 1+ yeast. Urine drug screen presumptive positive for THC. No microbiology studies. Chest x-ray has been reviewed, essentially clear lung celis. No acute cardiopulmonary process that I can see. No overt cardiomegaly. A 2D echocardiogram has been done. The official report is pending. Cardiac catheterization was done. The impression, acute subtotal occlusion of the distal RCA, successful IV ultrasound-guided PCI of mid right coronary artery with placement of a drug-eluting stent. Also, successful placement of a temporary venous pacemaker via the right femoral vein. Left ventriculography revealed inferoapical dyskinesis with an estimated ejection fraction of 40-45. No significant elevated end diastolic pressures. ASSESSMENT: 1. ST elevation myocardial infarction. 2. Acute respiratory distress. 3. Tobacco use disorder. 4. Leukocytosis. 5. Mild metabolic acidosis. 6. Likely urinary tract infection. PLAN: I will continue antiplatelet therapy and other targeted therapies for the coronary artery disease including antilipid therapy with statins. I have strongly counseled against tobacco smoking. He agrees to that and plans to stop it right away. I have also advised him that THC smoking probably also has similar deleterious effects, probably in another study, there is a tobacco. I have advised him that if I were in this condition, I will stop all smoking completely. I have advised better compliance with his medications and to take them as ordered as well as to follow up regularly. I will defer further ACS intervention to the directional survey drafter. I will put him on GI prophylaxis, especially with him on the IV heparin and other antiplatelet therapies. DVT prophylaxis once he is off the IV heparin. Flu and pneumonia vaccination will be addressed per protocol. Thank you very much for the consult. We will follow along and make further recommendations as picture progresses/becomes clearer. JOB# [id number] MIN/ADELSO
[2019-07-31] MEDS ORDERED: BACLOFEN 10 MG TAB PO PRN (06:46)
[2019-07-31 07:01] LABS: Hematocrit 42.9 % (35.5-45.6); Hemoglobin 14.9 gm/dl (11.8-15.2)
[2019-07-31] MEDS: INSULIN LISPRO 100 UNIT/ML SUB-Q SCH ×3 (08:50→17:03)
[2019-07-31] MEDS ORDERED: LISINOPRIL 5 MG TAB PO SCH (10:00)
[2019-07-31] MEDS ORDERED: prednisoLONE ACETATE 1% OPHTH SUSP 5 ML OU SCH (10:00)
[2019-07-31] MEDS ORDERED: MOXIFLOXACIN 0.5% OPHTH SOLN 3ML OU SCH (10:00)
[2019-07-31] MEDS ORDERED: TIMOLOL 0.5% OPHTH SOLN 5 ML OU SCH (10:00)
[2019-07-31] MEDS ORDERED: TAMSULOSIN 0.4 MG CAP PO SCH (10:00)
[2019-07-31] MEDS: cefTRIAXone/NS 2 GM/100 ML 2 GM/100 ML BAG IV SCH (11:12)
[2019-07-31] MEDS: FAMOTIDINE 20 MG TAB PO SCH (11:16)
[2019-07-31] MEDS: CLOPIDOGREL 75 MG TAB PO SCH (11:16)
[2019-07-31] MEDS: ASPIRIN EC 325 MG TAB PO SCH (11:16)
[2019-07-31] MEDS: metFORMIN 500 MG TAB PO SCH ×2 (11:22→17:03)
--- NOTE | 2019-07-31 11:24 | Progress Note ---
Assessment and Plan Echo reviewed - EF 40-45%, basal inferior, basal inferoseptal and mid inferior wall segments hypokinetic, mild to mod MR, mild TR, mild CT. Currently stable cardiac status. Pt in SR on tele (HR 70s - 80s) with bouts of sinus tachycardia noted this AM. Will initiate low dose lopressor. Also, will initiate low dose lisinopril in setting of mild LV dysfunction and diabetes. No current clinical evidence of acute heart failure. Cont ASA 325, plavix, lipitor. Currently stable cardiac status. Pending pt's BP and HR tolerate addition of lop ressor and lisinopril, he may discharge home this afternoon from cardiology standpoint. Recommend pt follow up with [facility] within 1-2 weeks. Pt verbalizes understanding. The patient has been seen in conjunction with Dr. Jackson who agrees with the assessment and plan of care. - Patient Problems (1) STEMI (ST elevation myocardial infarction) Current Visit: Yes Status: Acute Qualifiers: Involved coronary artery: right coronary artery Qualified Code(s): I21.11 - ST elevation (STEMI) myocardial infarction involving right coronary artery (2) CAD (coronary artery disease) Current Visit: Yes Status: Chronic (3) Stented coronary artery Current Visit: Yes Status: Chronic (4) Cardiomyopathy Current Visit: Yes Status: Acute (5) HTN (hypertension) Current Visit: Yes Status: Chronic (6) HLD (hyperlipidemia) Current Visit: Yes Status: Chronic Qualifiers: Hyperlipidemia type: mixed hyperlipidemia Qualified Code(s): E78.2 - Mixed hyperlipidemia (7) T2DM (type 2 diabetes mellitus) Current Visit: Yes Status: Chronic Qualifiers: 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 in SR on tele (HR 70s - 80s) with bouts of sinus tachycardia noted this AM. Objective Last Vital Signs Temp 98.5 F 07/31/19 08:20 Pulse 69 07/31/19 08:20 Resp 18 07/31/19 08:20 BP 122/88 07/31/19 08:20 Pulse Ox 97 07/31/19 08:20 - Physical Examination General: No Apparent Distress HEENT: Positive: PERRL, Normocephaly, Mucus Membranes Moist Neck: Positive: neck supple, trachea midline Cardiac: Positive: Reg Rate and Rhythm, S1/S2 Lungs: Positive: Decreased Breath Sounds Neuro: Positive: Grossly Intact Abdomen: Negative: Tender Skin: Negative: Rash Incision: Cardiac Cath Site (right groin, c/d/i, no bleeding or hematoma) - Labs and Meds CBC 07/31/19 Range/Units 06:03 Hgb 14.9 (11.8-15.2) gm/dl Hct 42.9 (35.5-45.6) % Plt Count 135 L (140-440) K/mm3 - Imaging and Cardiology EKG: report reviewed, image reviewed Echo: report reviewed Cardiac cath: report reviewed - Telemetry EKG Rhythm: Sinus Rhythm
[2019-07-31] MEDS ORDERED: METOPROLOL TARTRATE 25 MG TAB PO SCH (12:00)
--- NOTE | 2019-07-31 13:26 | Progress Note ---
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 terminal insulin use: without chcf use (5) Tobacco use Current Visit: Yes Status: Chronic Subjective Date of service: 07/31/19 Principal diagnosis: Acute VT Objective Vital Signs - 12hr 07/31/19 07/31/19 07/31/19 03:34 03:40 08:20 Temperature 99.0 F 98.5 F 98.5 F Pulse Rate 43 L 71 69 Respiratory 18 18 18 Rate Blood Pressure 131/102 135/72 122/88 Blood Pressure [Left] O2 Sat by Pulse 96 93 97 Oximetry 07/31/19 07/31/19 11:17 11:30 Temperature 98.2 F Pulse Rate 75 59 L Respiratory 18 Rate Blood Pressure 122/80 Blood Pressure 134/68 [Left] O2 Sat by Pulse 97 Oximetry CBC and BMP: 07/31/19 06:03 07/30/19 04:55 ABG, PT/INR, D-dimer: PT/INR, D-dimer PT 13.0 Sec. (12.2-14.9) 07/29/19 20:33 INR 1.01 (0.87-1.13) 07/29/19 20:33 Abnormal lab findings: Abnormal Labs 07/29/19 07/29/19 07/29/19 20:26 20:26 20:45 WBC 14.4 H RBC 5.08 H Hgb 15.3 H RDW 12.9 L Plt Count Darke % (Auto) Darke # 0.9 H Seg Neutrophils # 9.8 H Activated Clotting Time Sodium 135 L Chloride 97.4 L Carbon Dioxide 21 L Glucose 205 H POC Glucose Total Creatine Kinase CK-MB (CK-2) CK-MB (CK-2) Rel Index Troponin T 0.063 H Triglycerides 185 H HDL Cholesterol 38 L Urine WBC (Auto) 169.0 H 07/29/19 07/29/19 07/29/19 21:37 22:05 23:20 WBC RBC Hgb RDW Plt Count Darke % (Auto) Darke # Seg Neutrophils # Activated Clotting Time 202 H 246 H Sodium Chloride Carbon Dioxide Glucose POC Glucose Total Creatine Kinase CK-MB (CK-2) CK-MB (CK-2) Rel Index Troponin T 1.970 H* D Triglycerides HDL Cholesterol Urine WBC (Auto) 07/30/19 07/30/19 07/30/19 00:43 01:03 04:55 WBC RBC Hgb RDW Plt Count Darke % (Auto) Darke # Seg Neutrophils # Activated Clotting Time > 1000 H > 1000 H Sodium 136 L Chloride Carbon Dioxide 20 L Glucose 160 H POC Glucose Total Creatine Kinase 2790 H CK-MB (CK-2) 197.2 H CK-MB (CK-2) Rel Index 7.0 H Troponin T 7.240 H* D Triglycerides HDL Cholesterol Urine WBC (Auto) 07/30/19 07/30/19 07/31/19 04:55 22:17 06:03 WBC RBC Hgb RDW 12.6 L Plt Count 135 L Darke % (Auto) 8.3 H Darke # 0.9 H Seg Neutrophils # Activated Clotting Time Sodium Chloride Carbon Dioxide Glucose POC Glucose 111 H Total Creatine Kinase CK-MB (CK-2) CK-MB (CK-2) Rel Index Troponin T Triglycerides HDL Cholesterol Urine WBC (Auto) 07/31/19 07/31/19 08:27 11:15 WBC RBC Hgb RDW Plt Count Darke % (Auto) Darke # Seg Neutrophils # Activated Clotting Time Sodium Chloride Carbon Dioxide Glucose POC Glucose 113 H 202 H Total Creatine Kinase CK-MB (CK-2) CK-MB (CK-2) Rel Index Troponin T Triglycerides HDL Cholesterol Urine WBC (Auto) Chest x-ray: report reviewed (No acute findings.), image reviewed
--- NOTE | 2019-07-31 13:35 | Discharge Summary ---
Providers - Providers Date of Admission: 07/29/19 21:59 Attending physician: KRISTEN LOMBARDI MD 07/29/19 Consult to Cardiac Rehabilitation [CONS] Routine Reason For Exam: post pci 07/29/19 22:14 Consult to Physician [CONS] Urgent Comment: Consulting Provider: JOSIE KELLEY Physician Instructions: Reason For Exam: stmi 07/29/19 22:25 Consult to Physician [CONS] Routine Comment: Consulting Provider: JESSICA GORDON Physician Instructions: Reason For Exam: cc Primary care physician: [facility] Hospitalization Reason for admission: STEMI Condition: Stable Hospital course: 63-year-old man with a history of coronary artery disease comes emergency room with complaints of chest pain that started 5 days ago. He stated that the pain is in the epigastric area which he describes as a dull pain, has been intermittent usually for 10 minutes but today was constant, intensity 7/10, leading to the neck, cannot identify exacerbating factor. Admits to diaphoresis, no nausea vomiting shortness of breath or palpitation. In the emergency room code STEMI was activated, he was taken emergently to the [facility], a stent was placed in the RCA and he also has a temporary venous pacemaker. Interval history--Patient is chest pain free. Lying comfortably in bed. Family at bedside Echo reviewed - EF 40-45%, basal inferior, basal inferoseptal and mid inferior wall segments hypokinetic, mild to mod MR, mild TR, mild NJ. Currently stable cardiac status. Pt in SR on tele (HR 70s - 80s) with bouts of sinus tachycardia noted this AM. Will initiate low dose lopressor. Also, will initiate low dose lisinopril in setting of mild LV dysfunction and diabetes. No current clinical evidence of acute heart failure. Cont ASA 325, plavix, lipitor. Extensive counselling on tobacco cessation. (1) STEMI (ST elevation myocardial infarction) (2) UTI (urinary tract infection) (3) BPH (benign prostatic hyperplasia) (4) T2DM (type 2 diabetes mellitus) (5) Glaucoma (6) HLD (hyperlipidemia) (7) CAD (coronary artery disease) (8) Stented coronary artery (9) Cardiomyopathy (10) HTN (hypertension) (11) Tobacco use Disposition: - TO HOME OR SELFCARE Time spent for discharge: 35 MINS Core Measure Documentation - Palliative Care Palliative Care/ Comfort Measures: Not Applicable - Core Measures Any of the following diagnoses?: acute LA - Acute LA Discharge Requirements Aspirin at discharge: Yes NIVIA/ARB for LVSD if EF <40%: Yes Beta kristen at discharge: Yes Statin for LDL = or >100 mg/dl on DC: Yes Exam - Physical Exam Narrative exam: General appearance: Present: no acute distress, well-nourished - EENT Eyes: PERRL, EOM intact ENT: hearing intact, clear oral mucosa Ears: bilateral: normal - Neck Neck: supple, normal ROM - Respiratory Respiratory effort: normal Respiratory: bilateral: CTA - Breasts Breasts: normal - Cardiovascular Heart rate: 78 Rhythm: regular Heart Sounds: Present: S1 & S2. Absent: gallop, rub Extremities: no ischemia, pulses intact, No edema, normal color, Full ROM - Gastrointestinal General gastrointestinal: Present: soft, non-tender, non-distended, normal bowel sounds Rectal Exam: deferred - Genitourinary Male genitourinary: normal - Integumentary Integumentary: clear, warm, dry - Musculoskeletal Musculoskeletal: 1, strength equal bilaterally - Neurologic Neurologic: moves all extremities - Psychiatric Psychiatric: memory intact, appropriate mood/affect, intact judgment & insight - Constitutional Vitals: Temp Pulse Resp BP Pulse Ox 98.2 F 59 L 18 134/68 97 07/31/19 11:30 07/31/19 11:30 07/31/19 11:30 07/31/19 11:30 07/31/19 11:30 Plan Activity: advance as tolerated, fall precautions Diet: low fat, diabetic Special Instructions: record daily weights, record daily BP diary Additional Instructions: Follow with [place] [employer] IN 1-2 Weeks. Follow up with: PRIMARY MD MING [Primary Care Provider] - 7 Days TONIE ACOSTA MD [Staff Physician] - 7 Days Prescriptions: AtorvaSTATin [Lipitor] 80 mg PO QHS #30 tablet Aspirin EC 325 mg PO QDAY #30 tablet Metoprolol [Lopressor TAB] 12.5 mg PO BID #60 tablet Famotidine [Pepcid] 20 mg PO BID #30 tablet Clopidogrel [Plavix] 75 mg PO QDAY #30 tablet Lisinopril [Zestril TAB] 5 mg PO QDAY #30 tablet
[2019-07-31 21:44] VITALS: BP 124/78
[2019-07-31] MEDS ORDERED: LATANOPROST 0.005% OPHTH SOLN 2.5 ML OU SCH (22:00)
== END 2019-07-31 21:00 | disposition home or self-care (01) | DRG 246 ==
LOC: ED 20:01 → CC1 21:59 → 4A 07-30 17:40
PROVIDERS: ADMIT Internal Medicine; ATTEND Internal Medicine
PROC: 027034Z Dilation of Coronary Artery, One Artery with Drug-eluting Intraluminal Device, Percutaneous Approach (ICD-10-PCS; principal; 2019-07-29)
PROC: 4A023N7 Measurement of Cardiac Sampling and Pressure, Left Heart, Percutaneous Approach (ICD-10-PCS; 2019-07-29)
PROC: B2111ZZ Fluoroscopy of Multiple Coronary Arteries using Low Osmolar Contrast (ICD-10-PCS; 2019-07-29)
PROC: B2151ZZ Fluoroscopy of Left Heart using Low Osmolar Contrast (ICD-10-PCS; 2019-07-29)
PROC: B241ZZ3 Ultrasonography of Multiple Coronary Arteries, Intravascular (ICD-10-PCS; 2019-07-29)
DX: I21.19 ST elevation (STEMI) myocardial infarction involving other coronary artery of inferior wall (principal); I50.31 Acute diastolic (congestive) heart failure; E87.2 Acidosis; I42.9 Cardiomyopathy, unspecified; N30.00 Acute cystitis without hematuria; N40.0 Benign prostatic hyperplasia without lower urinary tract symptoms; E11.8 Type 2 diabetes mellitus with unspecified complications; I25.10 Atherosclerotic heart disease of native coronary artery without angina pectoris; R06.03 Acute respiratory distress; F17.200 Nicotine dependence, unspecified, uncomplicated; H40.9 Unspecified glaucoma; F12.90 Cannabis use, unspecified, uncomplicated; E78.2 Mixed hyperlipidemia; D72.829 Elevated white blood cell count, unspecified; I10 Essential (primary) hypertension; Z79.899 Other long term (current) drug therapy; Z95.5 Presence of coronary angioplasty implant and graft; Z82.49 Family history of ischemic heart disease and other diseases of the circulatory system; Z83.3 Family history of diabetes mellitus; Z81.3 Family history of other psychoactive substance abuse and dependence; Z71.6 Tobacco abuse counseling; Z72.89 Other problems related to lifestyle; I25.2 Old myocardial infarction
CPT/HCPCS: 33210; 36415; 71045; 80048; 80061; 80307; 81001; 82550; 82553; 82962; 83735; 84132; 84484; 85014; 85018; 85025; 85049; 85347; 85610; 85730; 92941; 92978; 93005; 93010; 93306; 93458; 96365; 96375; 99406; G0378; A9270-GY; C1725; C1753; C1769; C1874; C1887; C1894; C9606; J0696; J1644; J1815; J2250; J3010; J7030; Q9967